=== PATIENT | male | born 1975 | race American Indian/Alaskan Native ===

== ENCOUNTER 2017-12-28 15:20 | Emergency (ER) | payer SELFPAY | END 2017-12-28 16:00 | disposition left against medical advice (07) | LOC: ED 15:20 | DX: F99 Mental disorder, not otherwise specified (principal); Z53.21 Procedure and treatment not carried out due to patient leaving prior to being seen by health care provider ==

== ENCOUNTER 2021-03-26 07:52 | Emergency (ER) | payer SELFPAY ==
[2021-03-26] MEDS ORDERED: ONDANSETRON 4 MG/2 ML INJ IV ONE (09:27)
[2021-03-26] MEDS ORDERED: SODIUM CHLORIDE 0.9% 1000 ML 1,000 ML IV ONE (09:27)
[2021-03-26] MEDS ORDERED: KETOROLAC 30 MG/1 ML INJ IV ONE (09:27)
--- NOTE | 2021-03-26 09:31 | Emergency Department Report ---
ED Abdominal Pain HPI - General Chief Complaint: Abdominal Pain Stated Complaint: ABDOMINAL PAIN Time Seen by Provider: 03/26/21 09:00 Source: patient, EMS Mode of arrival: Ambulatory Limitations: No Limitations - History of Present Illness Initial Comments: 46-year-old -[place] male was brought to the ER today via EMS with complaints of left-sided abdominal pain. Patient states that the pain started yesterday. He states has been constant in nature. He states that he has been vomiting also having diarrhea. He reports multiple episodes of vomiting and also multiple episodes of diarrhea. He states that his emesis is mainly food without any hematemesis or coffee-ground emesis. And he states that the diarrhea is mainly watery without any mucus or blood. He denies any UTI symptoms. He denies any fever or chills. He denies similar symptoms in the past. He is status post appendectomy. Patient does have a history of HIV, and admits that he has not been compliant with his antiretrovirals. The last time he saw his ID specialist was December 2020 and he has a follow-up appointment for next . He is unsure of his last CD4 count or his viral load. He denies alcohol abuse or illicit drug use. MD Complaint: abdominal pain -: days(s) (1) Severity scale (0 -10): 7 - Related Data Previous Rx's Medication Instructions Recorded Last Taken Type Hyoscyamine Subl [Levsin Sl 0.125 0.125 mg SL Q6HR PRN #15 tab 03/26/21 Unknown Rx TAB] Ondansetron [Zofran Odt] 4 mg PO Q8HR #15 tab.rapdis 03/26/21 Unknown Rx Allergies Allergy/AdvReac Type Severity Reaction Status Date / Time No Known Allergies Allergy Verified 03/26/21 13:08 ED Review of Systems ROS: Stated complaint: ABDOMINAL PAIN Other details as noted in HPI Comment: All other systems reviewed and negative Constitutional: denies: chills, fever Eyes: denies: eye pain, eye discharge, vision change ENT: denies: ear pain, throat pain Respiratory: denies: cough, shortness of breath, SOB with exertion, SOB at rest, wheezing Cardiovascular: denies: chest pain, palpitations, dyspnea on exertion, edema, syncope, paroxysmal nocturnal dyspnea Gastrointestinal: abdominal pain, nausea, vomiting, diarrhea. denies: constipation, hematemesis, melena, hematochezia Genitourinary: denies: urgency, dysuria, frequency, hematuria, discharge, testicular pain, testicular mass Musculoskeletal: denies: back pain, joint swelling, arthralgia Skin: denies: rash, lesions, change in color, change in hair/nails, pruritus Neurological: denies: headache, weakness, numbness, paresthesias, confusion, ab normal gait, vertigo Psychiatric: denies: anxiety, depression Hematological/Lymphatic: denies: easy bleeding, easy bruising ED Past Medical Hx - Past Medical History Previous Medical History?: Yes Hx HIV: Yes - Medications Home Medications: Home Medications Medication Instructions Recorded Confirmed Last Taken Type Hyoscyamine Subl [Levsin Sl 0.125 0.125 mg SL Q6HR PRN #15 tab 03/26/21 Unknown Rx TAB] Ondansetron [Zofran Odt] 4 mg PO Q8HR #15 tab.rapdis 03/26/21 Unknown Rx ED Physical Exam - General Limitations: No Limitations General appearance: alert, in no apparent distress, other (Patient somnolent, but easily arousable) - Head Head exam: Present: atraumatic, normocephalic, normal inspection - Eye Eye exam: Present: normal appearance, PERRL, EOMI Pupils: Present: normal accommodation - ENT ENT exam: Present: mucous membranes dry - Neck Neck exam: Present: normal inspection, full ROM. Absent: meningismus - Respiratory Respiratory exam: Absent: respiratory distress - Cardiovascular Cardiovascular Exam: Present: regular rate - GI/Abdominal GI/Abdominal exam: Present: soft, tenderness (LUQ with mild guarding but no rebound or rigidity ). Absent: distended - Neurological Exam Neurological exam: Present: alert, oriented X3, CN II-XII intact, normal gait - Psychiatric Psychiatric exam: Present: normal affect, normal mood - Skin Skin exam: Present: intact ED Course Vital Signs 03/26/21 03/26/21 03/26/21 07:54 10:04 13:07 Temperature 98.4 F Pulse Rate 73 Respiratory 14 22 Rate Blood Pressure 114/80 [Left] O2 Sat by Pulse 96 99 Oximetry 03/26/21 03/26/21 13:08 14:54 Temperature 99.5 F 97.7 F Pulse Rate 87 61 Respiratory 20 16 Rate Blood Pressure 152/89 104/71 [Left] O2 Sat by Pulse 97 100 Oximetry ED Medical Decision Making - Lab Data Result diagrams: 03/26/21 10:04 03/26/21 10:04 - Radiology Data Radiology results: report reviewed Patient: HEBERT LEAL MR#: [id number] 9 : 1975 Acct:[id number] Age/Sex: 46 / M ADM Date: 03/26/21 Loc: ED Attending Dr: Ordering Physician: NADER AMAYA Date of Service: 03/26/21 Procedure(s): CT abdomen pelvis w con Accession Number(s): [id number] cc: NADER AMAYA CT abdomen pelvis w con INDICATION / CLINICAL INFORMATION: Left-sided abdominal pain, nausea, vomiting, diarr. TECHNIQUE: Axial CT images were obtained through the abdomen and pelvis after 100 cc of Omnipaque [address] scans at this location are performed using CT dose reduction for ALARA by means of automated exposure control. COMPARISON: None available. FINDINGS: LOWER CHEST: No significant abnormality LIVER: No significant abnormality GALLBLADDER/BILIARY TREE: No significant abnormality PANCREAS: No significant abnormality SPLEEN: No significant abnormality ADRENALS: No significant abnormality KIDNEYS / URETER: Bilateral renal cysts. There is also an indeterminate 1.2 cm right renal hypodensity at the midpole (series 2 image 47). No hydronephrosis. URINARY BLADDER: Bladder is decompressed, limiting further evaluation. REPRODUCTIVE ORGANS: No significant abnormality STOMACH / BOWEL: Scattered nondilated fluid-filled loops of small bowel within the right lower abdomen. No evidence of small bowel obstruction. The colon is unremarkable. Appendix is not seen and may be surgically absent. LYMPH NODES: No significant adenopathy. VASCULATURE: Mild atherosclerotic calcification without acute abnormality. OTHER: No free air, free fluid, or focal fluid collection is identified. SKELETAL SYSTEM: Mild multilevel degenerative changes of the lumbar spine. Findings are most pronounced at L4-L5, which demonstrates prominent disc herniation with cranial migration. There is at least moderate narrowing of the central spinal canal. Up to moderate foraminal narrowing is present bilaterally at L4-L5. IMPRESSION: 1. Scattered nondilated fluid-filled loops of small bowel, nonspecific but may reflect mild enteritis. 2. Otherwise, no acute process of the abdomen or pelvis. 3. Lower lumbar spondylosis, most pronounced at L4-L5, as described above. Signer Name: Manny Dumont MD Signed: 03/26/2021 2:27 PM Workstation Name: [id number] Transcribed By: LILI Dictated By: MANNY DUMONT MD Electronically Authenticated By: MANNY DUMONT MD Signed Date/Time: 03/26/211426 DD/ 22 TD/TT: - Medical Decision Making 1457: Labs reviewed -no significant abnormalities; CT abdomen pelvis report reviewed - Scattered nondilated fluid-filled loops of small bowel, nonspecific but may reflect mild enteritis. 2. Otherwise, no acute process of the abdomen or pelvis. Patient received IV fluids, Zofran and Toradol during stay. He has not had any episodes of nausea and vomiting during stay. He is currently resting comfortably in her recliner. He is not toxic or ill-appearing. He is eva rologically intact with a normal gait. He is hemodynamically stable. Repeat vital signs are also stable. Patient symptoms I suspect is likely related to a viral gastroenteritis. Discussed all results, suspected diagnosis and treatment plan with patient. Recommend that he keep his appointment with his ID specialist for next . He expressed understanding of all instructions and agree with plan. Patient was stable at time of discharge. Critical care attestation.: If time is entered above; I have spent that time in minutes in the direct care of this critically ill patient, excluding procedure time. ED Disposition Clinical Impression: Abdominal pain, Enteritis Disposition: HOME / SELF CARE / HOMELESS Is pt being admited?: No Does the pt Need Aspirin: No Condition: Stable Instructions: Abdominal Pain, Adult, Viral Gastroenteritis, Adult, [id number], Food Choices to Help Relieve Diarrhea, Adult Additional Instructions: Take the zofran and the levsin as prescribed to help with your symptoms. You can do a bland diet for the next 12 to 24 hours. You can take Imodium [id number] if your diarrhea continues. Continue drinking lots of fluids including Pedialyte, Gatorade or water or vitamin water. Follow-up with your primary care doctor. Return to the ER if your symptoms worsens or changes in any way. Prescriptions: Hyoscyamine Subl [Levsin Sl 0.125 TAB] 0.125 mg SL Q6HR PRN #15 tab PRN Reason: Abdominal cramps Ondansetron [Zofran Odt] 4 mg PO Q8HR #15 tab.amira Referrals: CANDY PARIS MD [Staff Physician] - 3-5 Days Time of Disposition: 14:45
[2021-03-26] MEDS ORDERED: ONDANSETRON 4 MG/2 ML INJ IV SCH (10:30)
[2021-03-26 11:07] LABS: Basophils % (Auto) 0.5 % (0.0-1.8); Hematocrit 46.3 % (35.5-45.6); Hemoglobin 14.9 gm/dl (11.8-15.2); Lymphocytes # (Auto) 0.8 K/mm3 (1.2-5.4); Lymphocytes % (Auto) 24.8 % (13.4-35.0); Mean Corpuscular HGB Conc 32 % (32-34); Mean Corpuscular Volume 95 fl (84-94); Monocytes # (Auto) 0.5 K/mm3 (0.0-0.8); Monocytes % (Auto) 14.4 % (0.0-7.3); Platelet Count 209 K/mm3 (140-440); Red Blood Count 4.85 M/mm3 (3.65-5.03); Red Cell Distribution Width 15.1 % (13.2-15.2)
[2021-03-26 11:33] LABS: Alanine Aminotransferase 21 units/L (7-56); Albumin 4.1 g/dL (3.9-5); BUN/Creatinine Ratio 8; Blood Urea Nitrogen 9 mg/dL (9-20); Calcium 8.7 mg/dL (8.4-10.2); Hemolysis Index 14
[2021-03-26 11:34] LABS: Bilirubin,Direct < 0.2 mg/dL (0-0.2)
[2021-03-26 13:31] LABS: Bilirubin,Urine NEG (Negative); Blood,Urine NEG (Negative); Color,Urine Yellow (Yellow); Mucus,Urine 2+ /HPF; Urobilinogen,Urine < 2.0 mg/dL (<2.0)
--- NOTE | 2021-03-26 14:31 | Cat Scan Report ---
CT abdomen pelvis w con INDICATION / CLINICAL INFORMATION: Left-sided abdominal pain, nausea, vomiting, diarr. TECHNIQUE: Axial CT images were obtained through the abdomen and pelvis after 100 cc of Omnipaque [address] scans at this location are performed using CT dose reduction for ALARA by means of automated exposure control. COMPARISON: None available. FINDINGS: LOWER CHEST: No significant abnormality LIVER: No significant abnormality GALLBLADDER/BILIARY TREE: No significant abnormality PANCREAS: No significant abnormality SPLEEN: No significant abnormality ADRENALS: No significant abnormality KIDNEYS / URETER: Bilateral renal cysts. There is also an indeterminate 1.2 cm right renal hypodensit y at the midpole (series 2 image 47). No hydronephrosis. URINARY BLADDER: Bladder is decompressed, limiting further evaluation. REPRODUCTIVE ORGANS: No significant abnormality STOMACH / BOWEL: Scattered nondilated fluid-filled loops of small bowel within the right lower abdome n. No evidence of small bowel obstruction. The colon is unremarkable. Appendix is not seen and may be surgically absent. LYMPH NODES: No significant adenopathy. VASCULATURE: Mild atherosclerotic calcification without acute abnormality. OTHER: No free air, free fluid, or focal fluid collection is identified. SKELETAL SYSTEM: Mild multilevel degenerative changes of the lumbar spine. Findings are most pronounc ed at L4-L5, which demonstrates prominent disc herniation with cranial migration. There is at least m oderate narrowing of the central spinal canal. Up to moderate foraminal narrowing is present bilatera lly at L4-L5. IMPRESSION: 1. Scattered nondilated fluid-filled loops of small bowel, nonspecific but may reflect mild enteritis . 2. Otherwise, no acute process of the abdomen or pelvis. 3. Lower lumbar spondylosis, most pronounced at L4-L5, as described above. Signer Name: Jin Dumont MD Signed: 03/26/2021 2:27 PM Workstation Name: [id number]
[2021-03-26 14:55] VITALS: BP 104/71
== END 2021-03-26 14:55 | disposition home or self-care (01) ==
LOC: ED 07:52
DX: K29.70 Gastritis, unspecified, without bleeding (principal); Z79.899 Other long term (current) drug therapy
CPT/HCPCS: 36415; 74177; 80048; 80076; 81001; 83690; 85025; 96361; 96374; 96375; 96376; 99284; J1885; J2405; J7030; Q9967; Q0162